=== PATIENT | female | born 1945 | race Caucasian/White ===

== ENCOUNTER 2018-06-13 07:44 | Day surgery (SDC) | payer MEDICARE, OTHER ==
[~2018-06-13] VITALS: Ht 170.2 cm; Wt 108.1 kg
[~2018-06-13 07:44] MED LIST: ACET325; Flomax0.4 MG PO; OTC ACID REDUCER; OXYACE5T PO; PROM25 PO; Percocet 5-3251 EACH PO; RANI150 PO; TAMS.4ER PO; Zofran Odt4 MG SL
[2018-06-13] MEDS ORDERED: IBUP100S (08:03)
[2018-06-13] MEDS ORDERED: ANACIN 400-321 EACH PO (08:03)
== END 2018-06-13 10:16 | disposition home or self-care (01) ==
LOC: ORSCSDS 07:44
PROVIDERS: Internal Medicine Gastroenterology
PROC: 0DBH8ZX Excision of Cecum, Via Natural or Artificial Opening Endoscopic, Diagnostic (ICD-10-PCS; principal; 2018-06-13 09:00)
PROC: 0DBL8ZX Excision of Transverse Colon, Via Natural or Artificial Opening Endoscopic, Diagnostic (ICD-10-PCS; principal; 2018-06-13 09:00)
PROC: 0DBP8ZX Excision of Rectum, Via Natural or Artificial Opening Endoscopic, Diagnostic (ICD-10-PCS; principal; 2018-06-13 09:00)
PROC: 0DBM8ZX Excision of Descending Colon, Via Natural or Artificial Opening Endoscopic, Diagnostic (ICD-10-PCS; principal; 2018-06-13 09:00)
DX: Z12.11 Encounter for screening for malignant neoplasm of colon (principal); D12.0 Benign neoplasm of cecum; D12.3 Benign neoplasm of transverse colon; D12.4 Benign neoplasm of descending colon; K62.1 Rectal polyp; K57.30 Diverticulosis of large intestine without perforation or abscess without bleeding; Z80.0 Family history of malignant neoplasm of digestive organs; K21.9 Gastro-esophageal reflux disease without esophagitis
CPT/HCPCS: 88305; J0330; J0461; J1980; J2405; J2704; J7120

== ENCOUNTER 2019-12-12 15:15 | Emergency (ER) | payer MEDICARE, OTHER ==
[~2019-12-12] VITALS: Ht 170.2 cm; Wt 108.9 kg
[~2019-12-12 15:15] MED LIST changes: +ANACIN 400-321 EACH PO; +IBUP100S
== END 2019-12-12 17:24 | disposition home or self-care (01) ==
LOC: ER 15:15
DX: S00.33XA Contusion of nose, initial encounter (principal); Z88.7 Allergy status to serum and vaccine; Z87.442 Personal history of urinary calculi; Z79.899 Other long term (current) drug therapy
CPT/HCPCS: 70160; 70450; 99284-25; A9270

== ENCOUNTER → 2021-07-28 | Outpatient (CLI) | payer MEDICARE | END | disposition home or self-care (01) | LOC: PLD 12:21 → LAB SHORT 12:21 | DX: L82.1 Other seborrheic keratosis (principal) | CPT/HCPCS: 88305 ==